=== PATIENT | female | born 1930 | race Caucasian/White ===

== ENCOUNTER → 2017-06-11 | Outpatient (CLI) | payer MEDICARE ==
[~2017-06-11] MED LIST: ACET1TAB86 PO; DIFL100T PO; GABA100C4 PO; HYDR-3516 PO; LATA.005%O EACH EYE; LISI-515 PO; LISI-519 PO; METO25TA3 PO; NICO21DI25 T-DERMAL; PANT40TA3 PO; SENN1TAB PO; VENTAER INH
[2017-06-11 13:11] LABS: AUTOMATED NEUTROPHIL # 6.5 TH/MM3 (1.8-7.7); BASOPHIL # 0.1 TH/MM3 (0-0.2); BASOPHIL % 0.6 % (0.0-2.0); EOSINOPHIL # 0.3 TH/MM3 (0-0.4); EOSINOPHIL % 2.8 % (0.0-4.0); HEMATOCRIT 45.7 % (35.0-46.0); HEMO FLAGS DIFF FINAL; LYMPH % 25.8 % (9.0-44.0); LYMPHOCYTE # 2.7 TH/MM3 (1.0-4.8); MEAN CELL VOLUME 96.3 FL (80.0-100.0); MEAN CORPUSCULAR HEMOGLOBIN 32.2 PG (27.0-34.0); MEAN CORPUSCULAR HGB CONC 33.4 % (32.0-36.0); MONO % 8.5 % (0.0-8.0); NEUT % 62.3 % (16.0-70.0); PLATELET COUNT 301 TH/MM3 (150-450); RED BLOOD COUNT 4.74 MIL/MM3 (4.00-5.30); RED CELL DISTRIBUTION WIDTH 13.6 % (11.6-17.2); WHITE BLOOD COUNT 10.5 TH/MM3 (4.0-11.0)
[2017-06-11 13:18] LABS: ALT (GPT) 13 U/L (10-53); ANION GAP 7 MEQ/L (5-15); AST (GOT) 22 U/L (15-37); BICARBONATE 30.4 MEQ/L (21.0-32.0); BLOOD UREA NITROGEN 8 MG/DL (7-18); CHLORIDE 101 MEQ/L (98-107); GLOMERULAR FILTRATION RATE 103 ML/MIN (>89); GLUCOSE,FASTING 98 MG/DL (74-99); POTASSIUM 3.9 MEQ/L (3.5-5.1); SODIUM (NA) 138 MEQ/L (136-145)
[2017-06-11 13:29] LABS: ALKALINE PHOSPHATASE 91 U/L (45-117); HDL CHOLESTEROL 116.1 MG/DL (40.0-60.0); LDL CHOLESTEROL 34 MG/DL (0-99); TOTAL BILIRUBIN ADULT 0.6 MG/DL (0.2-1.0)
[2017-06-11 15:53] LABS: HEMOGLOBIN A1a 1.1 %; HEMOGLOBIN A1b 1.3 %; HEMOGLOBIN Ao 85.8 %; HEMOGLOBIN F 0.2 %; HEMOGLOBIN P3 3.5 %
== END ==
LOC: PLAB 10:12
PROVIDERS: ATTEND Family Medicine
DX: E78.4 Other hyperlipidemia (principal); R53.83 Other fatigue; R73.01 Impaired fasting glucose; Z13.21 Encounter for screening for nutritional disorder
CPT/HCPCS: 36415; 80053; 80061; 83036; 84443; 85025

== ENCOUNTER 2017-06-17 06:29 | Inpatient (IN) | payer MEDICARE ==
[~2017-06-17] VITALS: Ht 160 cm; Wt 50.0 kg
[2017-06-17] VITALS (8 sets, daily range): BP systolic 123–180; BP diastolic 71–105; PULSE 89–100; RESP 18–20; TEMP 97.6–98.1; O2SAT 93–99
[2017-06-17] MEDS ORDERED: VENTAER INH (06:51)
[2017-06-17] MEDS ORDERED: LISI-515 PO (06:51)
[2017-06-17] MEDS ORDERED: LISI-519 PO (06:51)
[2017-06-17] MEDS ORDERED: DIFL100T PO (06:51)
[2017-06-17] MEDS ORDERED: SODIUM CHLORIDE 0.9% FLUSH 10 ML FLUSH IVF PRN (07:00)
[2017-06-17] MEDS ORDERED: TETANUS/DIPHTHERIA TOXOID ADULT 0.5 ML VIAL IM ONE (07:00)
[2017-06-17 07:13] LABS: AUTOMATED NEUTROPHIL # 21.2 TH/MM3 (1.8-7.7); BASOPHIL % 0.1 % (0.0-2.0); HEMATOCRIT 44.3 % (35.0-46.0); HEMO FLAGS DIFF FINAL; LYMPHOCYTE # 1.5 TH/MM3 (1.0-4.8); MEAN CELL VOLUME 95.6 FL (80.0-100.0); MEAN CORPUSCULAR HEMOGLOBIN 31.7 PG (27.0-34.0); MEAN CORPUSCULAR HGB CONC 33.1 % (32.0-36.0); MONO % 7.8 % (0.0-8.0); NEUT % 86.1 % (16.0-70.0); PLATELET COUNT 291 TH/MM3 (150-450); RED BLOOD COUNT 4.63 MIL/MM3 (4.00-5.30); RED CELL DISTRIBUTION WIDTH 13.3 % (11.6-17.2); WHITE BLOOD COUNT 24.7 TH/MM3 (4.0-11.0)
[2017-06-17 07:30] LABS: BICARBONATE 25.3 MEQ/L (21.0-32.0); POTASSIUM 3.9 MEQ/L (3.5-5.1)
--- NOTE | 2017-06-17 07:40 | RADRPT ---
EXAM DATE/TIME: 06/17/2017 07:10 [facility] COMPARISON: No previous studies available for comparison. INDICATIONS : Trauma; fall. RADIATION DOSE: 56.35 CTDIvol (mGy) MEDICAL HISTORY : Chronic obstructive pulmonary disease. Hypertension. SURGICAL HISTORY : Cholecystectomy. ENCOUNTER: Initial ACUITY: 1 day PAIN SCALE: 4/10 LOCATION: cranial TECHNIQUE: Multiple contiguous axial images were obtained of the head. Using automated exposure control and adj ustment of the mA and/or kV according to patient size, radiation dose was kept as low as reasonably a chievable to obtain optimal diagnostic quality images. DICOM format image data is available electro nically for review and comparison. FINDINGS: CEREBRUM: The ventricles are normal for age. No evidence of midline shift, mass lesion, hemorrhage or acute in farction. No extra-axial fluid collections are seen. Periventricular and deep white matter microvasc ular ischemic laceration with a small basal ganglion infarct on the right POSTERIOR FOSSA: The cerebellum and brainstem are intact. The 4th ventricle is midline. The cerebellopontine angle i s unremarkable. EXTRACRANIAL: The visualized portion of the orbits is intact. SKULL: The calvaria is intact. No evidence of skull fracture. CONCLUSION: Periventricular and deep white matter microvascular demyelinization. Small basal ganglion right sided remote lacunar infarction. Otherwise negative Daryl Avila MD on June 17, 2017 at 7:37 Board Certified Radiologist. This report was verified electronically.
--- NOTE | 2017-06-17 07:47 | EKG ---
Date Performed: 06/17/2017 Time Performed: 06:51:00 PTAGE: 87 years EKG: SINUS TACHYCARDIA WITH SHORT MT INTERVAL POSSIBLE LEFT ATRIAL ENLARGEMENT NONSPECIFIC ST DE PRESSION ABNORMAL ECG PREVIOUS TRACING : 11/01/2003 12.53 No significant change from previous tracing noted. DOCTOR: Gume Phelps Interpretating Date/Time 06/17/2017 07:46:17
--- NOTE | 2017-06-17 07:51 | PD ---
HPI . Fall Chief Complaint: Fall Time Seen by Provider: 06:48 Travel History International Travel<30 days: No Contact w/Intl Traveler<30days: No Traveled to known affect area: No History of Present Illness HPI This patient presents to us via [facility] status post a fall. She actually fell yesterday evening. She reportedly laid in her driveway until 2:00 this morning when a neighbor found her. The neighbor has reportedly been trying to get her to come to the hospital since that time. She is unable to bear weight on her right hip. She states that it really doesn't hurt that badly but she can't stand on it. She denies any loss of consciousness. She has no idea when her last tetanus shot not up in. [facility] Past Medical History COPD: Yes Hypertension: Yes Respiratory: Yes Tetanus Vaccination: Unknown Influenza Vaccination: No ?: Not : 4 Para: 4 Past Surgical History Cholecystectomy: Yes Social History Alcohol Use: Yes (3 times a week ) Tobacco Use: Yes (pack a day ) Substance Use: No Allergies-Medications (Allergen,Severity, Reaction): Uncoded Allergies: FLU SHOTS (Allergy, Unknown, UNKNOWN, 11/08/03) Reported Meds & Prescriptions Reported Meds & Active Scripts Active Reported Diflucan (Fluconazole) 100 Mg Tab 100 Mg PO DAILY Lisinopril 20 Mg Tab 20 Mg PO DAILY Ventolin Hfa 18 GM Inh (Albuterol Sulfate) 90 Mcg/Act Aer 2 Puff INH Q4-6H PRN Review of Systems Except as stated in HPI: all other systems reviewed are Neg Eyes: No: Blurred Vision HENT: No: Headaches, Lightheadedness Cardiovascular: No: Chest Pain or Discomfort Respiratory: No: Shortness of Breath Gastrointestinal: No: Nausea, Vomiting, Diarrhea Genitourinary: No: Urgency, Frequency, Dysuria Musculoskeletal: Positive: Arthralgias Skin: Positive Other (abrasions) Physical Exam Narrative GENERAL: Awake and alert and in no acute distress. SKIN: Warm and dry. She has abrasions to her right forearm and her left leg. HEAD: Atraumatic. Normocephalic. She does have a contusion in the left periorbital region. EYES: Pupils equal and round. Extraocular movements are intact. ENT: No nasal bleeding or discharge. Mucous membranes pink and moist. NECK: Trachea midline. Neck is nontender with full range of motion. CARDIOVASCULAR: Regular rate and rhythm. Heart sounds are normal. RESPIRATORY: No accessory muscle use. Lungs are clear with full air movement throughout. GASTROINTESTINAL: Abdomen soft, non-tender, nondistended. MUSCULOSKELETAL: No obvious deformities. No edema. She does not have any tenderness to palpation in the right groin. There is no shortening or malrotation of the right lower extremity. There is some mild tenderness over the greater trochanter. She is distally neurovascularly intact. NEUROLOGICAL: Awake and alert. No obvious cranial nerve deficits. Motor grossly within normal limits. Normal speech. PSYCHIATRIC: Appropriate mood and affect; insight and judgment normal. Data Data Last Documented VS Vital Signs Date Time Temp Pulse Resp B/P (MAP) Pulse Ox O2 Delivery O2 Flow Rate FiO2 06/17/17 07:02 89 18 180/105 (130) 99 Room Air 06/17/17 06:33 98.1 Orders Orders Basic Metabolic Panel (Bmp) (06/17/17 06:48) Complete Blood Count With Diff (06/17/17 06:48) Iv Access Insert/Monitor (06/17/17 06:48) Sodium Chloride 0.9% Flush (Ns Flush) (06/17/17 07:00) Creatine Kinase (Cpk) (06/17/17 06:48) Ct Brain W/O Iv Contrast(Rout) (06/17/17 06:48) Hip, Uni(Ap&Lat) W Ap Pelvis (06/17/17 06:48) Tetanus/Diphtheria Tox Adult (Tetanus/Di (06/17/17 07:00) Urinalysis - C+S If Indicated (06/17/17 07:21) Electrocardiogram (06/17/17 06:51) CKMB (06/17/17 07:00) CKMB% (06/17/17 07:00) Labs Laboratory Tests Test 06/17/17 07:00 White Blood Count 24.7 TH/MM3 Red Blood Count 4.63 MIL/MM3 Hemoglobin 14.7 GM/DL Hematocrit 44.3 % Mean Corpuscular Volume 95.6 FL Mean Corpuscular Hemoglobin 31.7 PG Mean Corpuscular Hemoglobin Concent 33.1 % Red Cell Distribution Width 13.3 % Platelet Count 291 TH/MM3 Mean Platelet Volume 8.5 FL Neutrophils (%) (Auto) 86.1 % Lymphocytes (%) (Auto) 6.0 % Monocytes (%) (Auto) 7.8 % Eosinophils (%) (Auto) 0.0 % Basophils (%) (Auto) 0.1 % Neutrophils # (Auto) 21.2 TH/MM3 Lymphocytes # (Auto) 1.5 TH/MM3 Monocytes # (Auto) 1.9 TH/MM3 Eosinophils # (Auto) 0.0 TH/MM3 Basophils # (Auto) 0.0 TH/MM3 CBC Comment DIFF FINAL Differential Comment Blood Urea Nitrogen 12 MG/DL Creatinine 0.65 MG/DL Random Glucose 135 MG/DL Calcium Level 9.4 MG/DL Sodium Level 133 MEQ/L Potassium Level 3.9 MEQ/L Chloride Level 98 MEQ/L Carbon Dioxide Level 25.3 MEQ/L Anion Gap 10 MEQ/L Estimat Glomerular Filtration Rate 87 ML/MIN Total Creatine Kinase 660 U/L MDM Medical Decision Making Medical Screen Exam Complete: Yes Emergency Medical Condition: Yes Differential Diagnosis Differential diagnosis of extremity trauma includes but is not limited to fracture, sprain or strain, dislocation, contusion Narrative Course This patient presents several hours following a fall. She is unable to bear weight on her right hip. She has also obviously had some trauma to her head although she denies any loss of consciousness and is currently without any signs or symptoms of a head injury. I have ordered an x-ray of her hip and a CT of her head. Routine labs have been ordered with the addition of a CK to rule out rhabdomyolysis. Her care is being turned over to Dr. Gurrola at 0700. Condition: Stable Lavonne Lopez MD Jun 17, 2017 07:51
--- NOTE | 2017-06-17 07:54 | RADRPT ---
EXAM DATE/TIME: 06/17/2017 07:29 This report includes an Addendum and supersedes previous reports for this exam. [facility] COMPARISON: No previous studies available for comparison. INDICATIONS : Right hip pain, fall. MEDICAL HISTORY : None. SURGICAL HISTORY : None. ENCOUNTER: Initial ACUITY: 1 day PAIN SCORE: 10/10 LOCATION: Right hip FINDINGS: Examination of the right hip was performed with AP Pelvis. The primary and secondary trabecular gemini yaneth of the femoral neck is intact. The hip joint is of normal width without significant sclerosis or bony hypertrophy. The acetabulum is grossly intact. CONCLUSION: 1. No acute fracture or dislocation. Consider MRI examination if patient is unable to bear weight on the affected side. Marquez Rawls MD on June 17, 2017 at 7:51 Board Certified Radiologist. This report was verified electronically. ADDENDUM: There is slight irregularity of the greater trochanter on the oblique view. This may reflect a subtle trochanteric fracture. Clinical correlation with point of maximal tenderness is recommended. Marquez Rawls MD on June 17, 2017 at 8:21 Board Certified Radiologist. This report was verified electronically.
[2017-06-17 07:55] LABS: CKMB 25.5 NG/ML (0.5-3.6)
[2017-06-17 09:24] LABS: BLOOD, URINE NEG (NEG); COMMENT (UR) CULT NOT INDICATED; CULTURE IF INDICATED CULT NOT INDICATED; GLUCOSE,URINE NEG (NEG); KETONE, URINE NEG (NEG); MUCUS URINE FEW /lpf (OCC); NITRITE,URINE NEG (NEG); PH, URINE 6.5 (5.0-8.5); SQUAMOUS EPITHELIAL CELL URINE 4 /hpf (0-5); URINE COLOR YELLOW (YELLW/STRAW)
[2017-06-17] MEDS ORDERED: SODIUM CHLOR 0.9% 1000 ML INJ 1,000 ML IV ONE (09:30)
[2017-06-17] MEDS ORDERED: cefTRIAXone INJ 1,000 MG in SODIUM CHLORIDE 0.9% INJ 100 ML IV ONE (09:30)
--- NOTE | 2017-06-17 09:52 | RADRPT ---
EXAM DATE/TIME: 06/17/2017 09:32 [facility] COMPARISON: No previous studies available for comparison. INDICATIONS : Cough. MEDICAL HISTORY : Chronic obstructive pulmonary disease. Hypertension SURGICAL HISTORY : None. ENCOUNTER: Initial ACUITY: 1 day PAIN SCORE: 0/10 LOCATION: Bilateral chest FINDINGS: A single view of the chest demonstrates the lungs to be symmetrically aerated without evidence of mas s, infiltrate or effusion. Nipple shadows are seen. The cardiomediastinal contours are unremarkable. Osseous structures are intact. CONCLUSION: No acute disease. Florin Benitez MD on June 17, 2017 at 9:49 Board Certified Radiologist. This report was verified electronically.
--- NOTE | 2017-06-17 10:06 | PD ---
Physical Exam Date Seen by Provider: Jun 17, 2017 Time Seen by Provider: 10:03 Narrative 87-year-old female was found down in her driveway by her neighbor at 3 in the morning. As per the patient and she went for a walk last night when she fell and was unable to get up. Her right hip was hurting. Please refer to the previous ER physician's note regarding the details of history and physical. Sign out was to follow-up on the x-ray and labs. [facility] white blood cell count is significantly elevated. Patient's x-ray shows a greater trochanter fracture. She appears to be dehydrated. I went and talked to her and patient is fully awake and answering questions appropriately. 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 Patient has been started on Diflucan yesterday. Her UA and chest x- ray appears to be within acceptable limits. I have given her a dose of Rocephin. This blood culture and lactic acid pending. I just discussed the case with the PA of Dr. Markham from orthopedics. They have recommended a CAT scan of the hip. Patient has been admitted to the hospitalist. I discussed all the findings and the admission with the patient and she is okay with it. Her friend/neighbor is here with her and she pulled me aside and said patient has been a very heavy smoker for 60 years and she is really concerned about her lungs. Data Data Last Documented VS Vital Signs Date Time Temp Pulse Resp B/P (MAP) Pulse Ox O2 Delivery O2 Flow Rate FiO2 06/17/17 10:00 100 18 140/88 (105) 98 Nasal Cannula 2.00 06/17/17 06:33 98.1 Orders Orders Basic Metabolic Panel (Bmp) (06/17/17 06:48) Complete Blood Count With Diff (06/17/17 06:48) Iv Access Insert/Monitor (06/17/17 06:48) Sodium Chloride 0.9% Flush (Ns Flush) (06/17/17 07:00) Creatine Kinase (Cpk) (06/17/17 06:48) Ct Brain W/O Iv Contrast(Rout) (06/17/17 06:48) Hip, Uni(Ap&Lat) W Ap Pelvis (06/17/17 06:48) Tetanus/Diphtheria Tox Adult (Tetanus/Di (06/17/17 07:00) Urinalysis - C+S If Indicated (06/17/17 07:21) Electrocardiogram (06/17/17 06:51) CKMB (06/17/17 07:00) CKMB% (06/17/17 07:00) Sodium Chlor 0.9% 1000 Ml Inj (Ns 1000 M (06/17/17 09:30) Ceftriaxone Inj (Rocephin Inj) (06/17/17 09:30) Blood Culture (06/17/17 09:17) Lactic Acid (06/17/17 09:17) Chest, Single Ap (06/17/17 ) Admit Order (Ed Use Only) (06/17/17 10:01) Labs Laboratory Tests Test 06/17/17 07:00 06/17/17 08:44 06/17/17 09:45 White Blood Count 24.7 TH/MM3 Red Blood Count 4.63 MIL/MM3 Hemoglobin 14.7 GM/DL Hematocrit 44.3 % Mean Corpuscular Volume 95.6 FL Mean Corpuscular Hemoglobin 31.7 PG Mean Corpuscular Hemoglobin Concent 33.1 % Red Cell Distribution Width 13.3 % Platelet Count 291 TH/MM3 Mean Platelet Volume 8.5 FL Neutrophils (%) (Auto) 86.1 % Lymphocytes (%) (Auto) 6.0 % Monocytes (%) (Auto) 7.8 % Eosinophils (%) (Auto) 0.0 % Basophils (%) (Auto) 0.1 % Neutrophils # (Auto) 21.2 TH/MM3 Lymphocytes # (Auto) 1.5 TH/MM3 Monocytes # (Auto) 1.9 TH/MM3 Eosinophils # (Auto) 0.0 TH/MM3 Basophils # (Auto) 0.0 TH/MM3 CBC Comment DIFF FINAL Differential Comment Blood Urea Nitrogen 12 MG/DL Creatinine 0.65 MG/DL Random Glucose 135 MG/DL Calcium Level 9.4 MG/DL Sodium Level 133 MEQ/L Potassium Level 3.9 MEQ/L Chloride Level 98 MEQ/L Carbon Dioxide Level 25.3 MEQ/L Anion Gap 10 MEQ/L Estimat Glomerular Filtration Rate 87 ML/MIN Total Creatine Kinase 660 U/L Creatine Kinase MB 25.5 NG/ML Creatine Kinase MB % 3.9 % Urine Color YELLOW Urine Turbidity CLEAR Urine pH 6.5 Urine Specific [place] 1.012 Urine Protein TRACE mg/dL Urine Glucose (UA) NEG mg/dL Urine Ketones NEG mg/dL Urine Occult Blood NEG Urine Nitrite NEG Urine Bilirubin NEG Urine Urobilinogen LESS THAN 2.0 MG/DL Urine Leukocyte Esterase MOD Urine RBC 3 /hpf Urine WBC 5 /hpf Urine Squamous Epithelial Cells 4 /hpf Urine Mucus FEW /lpf Microscopic Urinalysis Comment CULT NOT INDICATED Lactic Acid Level 1.8 mmol/L MDM Supervised Visit with ROB: No Interpretation(s) Twelve-lead EKG was reviewed by me. Normal sinus rhythm, normal axis, nonspecific ST-T wave changes. Heart rate of 96 bpm. Physician Communication Physician Communication PA of Dr. Markham Diagnosis Primary Impression: Hip fracture, right Qualified Codes: S72.001A - Fracture of unspecified part of neck of right femur, initial encounter for closed fracture Additional Impressions: Fall Qualified Codes: W19.XXXA - Unspecified fall, initial encounter Leukocytosis Qualified Codes: D72.829 - Elevated white blood cell count, unspecified Chronic ulcer of leg Qualified Codes: L97.922 - Non-pressure chronic ulcer of unspecified part of left lower leg with fat layer exposed Admitting Information Admitting Physician Requests: Admit Condition: Stable Chuck Estrada MD Jun 17, 2017 10:06
[2017-06-17] MEDS ORDERED: diphenhydrAMINE HCL 50 MG/ML VIAL ONE (10:13)
[2017-06-17] MEDS ORDERED: RESP: ALBUTEROL 2.5 MG/3 ML NEB (SCH) NEB ONE (10:15)
[2017-06-17] MEDS ORDERED: diphenhydrAMINE HCL 50 MG/ML VIAL IV PUSH ONE (10:15)
[2017-06-17] MEDS ORDERED: SODIUM CHLORIDE 0.9% FLUSH 10 ML FLUSH IV FLUSH PRN (10:30)
[2017-06-17] MEDS ORDERED: LABETALOL HCL 100 MG/20 ML VIAL IV PUSH PRN (10:30)
--- NOTE | 2017-06-17 11:29 | RADRPT ---
EXAM DATE/TIME: 06/17/2017 10:49 [facility] COMPARISON: HIP RIGHT (AP&LAT 2/3VWS) W AP PELVIS, June 17, 2017, 7:29. INDICATIONS : Trauma, fall. Right hip pain. RADIATION DOSE: 19.14 CTDIvol (mGy) MEDICAL HISTORY : Hypertension. Chronic obstructive pulmonary disease. SURGICAL HISTORY : Cholecystectomy. ENCOUNTER: Initial ACUITY: 1 day PAIN SCALE: 10/10 LOCATION: Right hip TECHNIQUE: Volumetric scanning of the hip was performed. Using automated exposure control and adjustment of the mA and/or kV according to patient size, radiation dose was kept as low as reasonably achievable to o btain optimal diagnostic quality images. DICOM format image data is available electronically for rev iew and comparison. FINDINGS: There is an acute intertrochanteric hip fracture on the right. Angulation with apex projecting anteri junaid the femoral head remains in the acetabulum. Acute superior and inferior pubic rami fractures als o seen on the right. These are displaced. An acute fracture to the right sacral ala. No angulation or distraction. The underlying osteopenia. The uterus is enlarged. No large pelvic hematoma. CONCLUSION: 1. Acute intertrochanteric hip fracture on the right with angulation. 2. Acute superior and inferior pelvic rami fractures on the right with angulation. 3. Acute right sacral fracture. 1. Williams Calzada Jr., MD on June 17, 2017 at 11:13 Board Certified Radiologist. This report was verified electronically.
--- NOTE | 2017-06-17 12:09 | EKG ---
Date Performed: 06/17/2017 Time Performed: 08:07:30 PTAGE: 87 years EKG: Sinus rhythm NONSPECIFIC ST & T-WAVE ABNORMALITY BORDERLINE ECG PREVIOUS TRACING : 06/17/2017 06.51 No significant change from previous tracing noted. DOCTOR: Gume Phelps Interpretating Date/Time 06/17/2017 12:09:06
--- NOTE | 2017-06-17 13:12 | MB ---
cc: ROBBIEKIM DATE OF CONSULTATION: 06/17/2017 CHIEF COMPLAINT Right hip pain and fracture status post fall. HISTORY OF PRESENT ILLNESS The patient is a 87-year-old white female who presents to the emergency department after suffering a fall at home. She apparently fell last night sometime and had been laying in her driveway until 2:00 a.m. when her neighbor found her. She was brought to the hospital via ambulance. She states that she is blind. However, she states she lives alone. She reports that she was in the driveway when she lost her balance and fell. She denies any dizziness. Denies any loss of consciousness. Denies any shortness of breath. Denies any current pain at rest. She does report that when she stands she has pain in the right hip and states that she is unable to walk on her right leg secondary to the pain. Denies any numbness, tingling or radiation symptoms and other than acute abrasions, denies any other pain in any other limb. She states that prior to this she was independent and ambulating on her own. PAST MEDICAL HISTORY 1. Positive for COPD 2. Hypertension 3. Respiratory issues PAST SURGICAL HISTORY Positive for cholecystectomy. SOCIAL HISTORY She admits to drinking alcohol and smoking a pack of cigarettes per day. Denies any substance abuse. ALLERGIES TO MEDICATIONS Reports allergy to FLU SHOT. MEDICATION Reported medications: 1. Diflucan. 2. Lisinopril 20 mg p.o. daily. 3. Ventolin inhaler. For a complete list of medications, please see the patient's EMR. REVIEW OF SYSTEMS Negative except for what is mentioned in the HPI. PHYSICAL EXAMINATION VITAL SIGNS: Pulse 95 beats per minute, temperature 98.1, blood pressure 176/84, O2 saturation 96 on room air. GENERAL: Well-developed, well-nourished 87-year-old white female in no acute distress, resting comfortably. HEAD: Normocephalic. Does have evidence of swelling and bruising on the right front part of her skull. Mild abrasions and scratches present. EYES: The pupils are equal, round and reactive to light, extraocular motions intact. EARS: Hearing intact bilaterally. NECK: Supple. No evidence of lymphadenopathy. CRANIAL NERVES: Cranial nerves II-XII grossly intact. LUNGS: No auditory wheezes at bedside and no use of accessory muscles while breathing. HEART: No grade 4 murmur present at bedside. UPPER EXTREMITIES: Full motion of shoulders, elbows, wrists and fingers and minimal discomfort. Full sensation distally to median and ulnar nerve distributions bilaterally. She does have noticeable abrasions on her right olecranon that is bandaged. RIGHT LOWER EXTREMITY: Mild discomfort with flexion of the hip and no real discomfort with internal, external rotation of the hip. She is point tender to palpation of the greater trochanter. She is nontender with palpation of the knee or the ankle or toes. She has full motor of the ankle and toes and no pain. Full sensation distally. Negative Homans and strong dorsiflexion. LEFT LOWER EXTREMITY: Full motion of the hip, knee, ankle and toes and no pain. Full sensation distally with strength 5/5. IMAGING STUDIES X-ray was reviewed from [facility] which shows equivocal fracture of the greater trochanter. CT scan was reviewed from [facility] which shows a nondisplaced greater trochanter fracture of the right hip. Also shows superior and inferior pubic rami fractures. ASSESSMENT 1. Greater trochanter fracture of the right hip. 2. Superior and inferior pubic rami fractures of the right side. PLAN At this point treatment options were discussed with the patient. Assuming that she would do very well with nonsurgical treatment. At this point I would recommend that she remains 2% weightbearing on the right leg while using a walker. I advised the patient that as long as the fractures maintain their position they should heal well on their own and she should be able to avoid surgery. She will avoid any active abduction. She will be admitted to the [facility] and will begin physical therapy. Due to her inability to ambulate and being blind, she will likely benefit from inpatient rehab facility after discharge from the hospital. We will follow along in the hospital setting. Otherwise, she will follow up on outpatient setting with Dr. Mcclure or his PA in 2 weeks. The patient understood and all questions were answered. The above patient was reviewed and discussed with Dr. Mcclure and he does agree. Dictated by: SUZANNE Carmona I also saw and examined this patient. History, past medical history, social history, review of systems, physical exam, radiographs, assessment, and plan were also reviewed. Plan on nonoperative treatment. A mid-level provider in my office (nurse practitioner or physician administrative assistant) may see this patient on follow-up visits and continue to implement the objectives of this plan including : Starting or adjusting medications, injections, cast application, orthotics, brace application, physical therapy, radiological studies (including x-ray, MRI , CT, ultrasound, bone scan), vascular studies, neurologic studies, specialist consultation, and proceeding with surgical management, as appropriate. MD KIRAN Cameron/KRISS /12:23 PM /1:09 PM JC
[2017-06-17] MEDS: SODIUM CHLOR 0.9% 1000 ML INJ 1,000 ML IV SCH (13:16)
[2017-06-17] MEDS ORDERED: ALBUTEROL SULFATE 90 MCG/ACT HFA 8 GM INHALER INH PRN (15:45)
[2017-06-17] MEDS ORDERED: ENALAPRILAT 2.5 MG/2 ML VIAL IV PUSH PRN (16:00)
[2017-06-17] MEDS ORDERED: ALBUTEROL SULFATE 90 MCG/ACT HFA 18 GM INHALER INH PRN (16:00)
--- NOTE | 2017-06-17 16:03 | HHI.HP ---
[facility] Service [facility] Primary Care Physician Shandra Dc MD Admission Diagnosis fall, hip fracture, leukocytosis Diagnoses: (1) Rhabdomyolysis (2) Hip fracture, right (3) Chronic ulcer of leg (4) Leukocytosis (5) Fall Chief Complaint: Right hip pain Travel History International Travel<30 Days: No Contact w/Intl Traveler <30 Da: No Traveled to Known Affected Are: No History of Present Illness 87-year-old female with a history of hypertension, COPD was brought to the ED for evaluation of right hip pain. Patient states she fell while bringing the dog inside after she has gone out to walk him. She landed on her right side in the garage and was unable to move for up to 4 hours until seen by her neighbor. She denies any head trauma. She did complain of severe right hip pain rated 6/10 in intensity. She has no chest pain or shortness of breath. She denies any GI bleed Review of Systems Except as stated in HPI: all other systems reviewed are Neg Past Family Social History Past Medical History Hypertension COPD Tobacco abuse Past Surgical History Cataract surgery Cholecystectomy Reported Medications Diflucan (Fluconazole) 100 Mg Tab 100 Mg PO DAILY Lisinopril 20 Mg Tab 20 Mg PO DAILY Ventolin Hfa 18 GM Inh (Albuterol Sulfate) 90 Mcg/Act Aer 2 Puff INH Q4-6H PRN Allergies: Coded Allergies: ceftriaxone (Verified Allergy, Severe, Wheezing, 06/17/17) Uncoded Allergies: FLU SHOTS (Allergy, Unknown, UNKNOWN, 11/08/03) Family History Positive for hypertension Social History Alcohol Use: Yes (3 times a week ) Tobacco Use: Yes (pack a day ) Substance Use: No Physical Exam Vital Signs Vital Signs Date Time Temp Pulse Resp B/P (MAP) Pulse Ox O2 Delivery O2 Flow Rate FiO2 06/17/17 14:37 06/17/17 12:00 94 18 160/78 (105) 99 Nasal Cannula 2.00 06/17/17 10:26 93 Nasal Cannula 3.00 06/17/17 10:00 100 18 140/88 (105) 98 Nasal Cannula 2.00 06/17/17 08:46 95 18 176/84 (114) 96 Room Air 06/17/17 07:02 89 18 180/105 (130) 99 Room Air 06/17/17 06:33 98.1 89 18 157/80 (105) 98 Physical Exam GENERAL: This is a well-nourished, well-developed patient, in no apparent distress. SKIN: No rashes, ecchymoses or lesions. Cool and dry. HEAD: Atraumatic. Normocephalic. No temporal or scalp tenderness. EYES: Pupils equal round and reactive. Extraocular motions intact. No scleral icterus. No injection or drainage. ENT: Nose without bleeding, purulent drainage or septal hematoma. Throat without erythema, tonsillar hypertrophy or exudate. Uvula midline. Airway patent. NECK: Trachea midline. No JVD or lymphadenopathy. Supple, nontender, no meningeal signs. CARDIOVASCULAR: Regular rate and rhythm without murmurs, gallops, or rubs. RESPIRATORY: Clear to auscultation. Breath sounds decrease bilaterally. No wheezes, rales, or rhonchi. GASTROINTESTINAL: Abdomen soft, non-tender, nondistended. No hepato-splenomegaly , or palpable masses. No guarding. MUSCULOSKELETAL: Extremities without clubbing, cyanosis, or edema.RLE TTP with Limited ROM. Negative Homans sign bilaterally. NEUROLOGICAL: Awake and alert. Cranial nerves II through XII intact. Motor and sensory grossly within normal limits. Five out of 5 muscle strength in all muscle groups. Normal speech. Laboratory Laboratory Tests Test 06/17/17 07:00 06/17/17 08:44 06/17/17 09:45 White Blood Count 24.7 Red Blood Count 4.63 Hemoglobin 14.7 Hematocrit 44.3 Mean Corpuscular Volume 95.6 Mean Corpuscular Hemoglobin 31.7 Mean Corpuscular Hemoglobin Concent 33.1 Red Cell Distribution Width 13.3 Platelet Count 291 Mean Platelet Volume 8.5 Neutrophils (%) (Auto) 86.1 Lymphocytes (%) (Auto) 6.0 Monocytes (%) (Auto) 7.8 Eosinophils (%) (Auto) 0.0 Basophils (%) (Auto) 0.1 Neutrophils # (Auto) 21.2 Lymphocytes # (Auto) 1.5 Monocytes # (Auto) 1.9 Eosinophils # (Auto) 0.0 Basophils # (Auto) 0.0 CBC Comment DIFF FINAL Differential Comment Blood Urea Nitrogen 12 Creatinine 0.65 Random Glucose 135 Calcium Level 9.4 Sodium Level 133 Potassium Level 3.9 Chloride Level 98 Carbon Dioxide Level 25.3 Anion Gap 10 Estimat Glomerular Filtration Rate 87 Total Creatine Kinase 660 Creatine Kinase MB 25.5 Creatine Kinase MB % 3.9 Urine Color YELLOW Urine Turbidity CLEAR Urine pH 6.5 Urine Specific [place] 1.012 Urine Protein TRACE Urine Glucose (UA) NEG Urine Ketones NEG Urine Occult Blood NEG Urine Nitrite NEG Urine Bilirubin NEG Urine Urobilinogen LESS THAN 2.0 Urine Leukocyte Esterase MOD Urine RBC 3 Urine WBC 5 Urine Squamous Epithelial Cells 4 Urine Mucus FEW Microscopic Urinalysis Comment CULT NOT INDICATED Lactic Acid Level 1.8 Date/Time Source Procedure Growth Status 06/17/17 09:50 Blood Peripheral Aerobic Blood Culture Pending Received 06/17/17 09:50 Blood Peripheral Anaerobic Blood Culture Pending Received Result Diagram: 06/17/17 0700 06/17/17 0700 Septic Shock Reassessment Heart: Regular rate and rhythm Lungs: Clear Skin: Warm Peripheral Pulses: Bounding Right Radial Bounding Left Radial Bounding Right Popliteal Bounding Left Popliteal Bounding Right Dorsalis Pedis Bounding Left Dorsalis Pedis Bounding Right Posterior Tibial Bounding Left Posterior Tibial Capillary Refill: >2 seconds Caprini VTE Risk Assessment Caprini VTE Risk Assessment: Mod/High Risk (score >= 2) Caprini Risk Assessment Model Point Value = 1 Point Value = 2 Point Value = 3 Point Value = 5 Age 41-60 Minor surgery BMI > 25 kg/m2 Swollen legs Varicose veins or History of unexplained or recurrent spontaneous Oral contraceptives or hormone replacement Sepsis (< 1 month) Serious lung disease, including pneumonia (< 1 month) Abnormal pulmonary function Acute myocardial infarction Congestive heart failure (< 1 month) History of inflammatory bowel disease Medical patient at bed rest Age 61-74 Arthroscopic surgery Major open surgery (> 45 min) Laparoscopic surgery (> 45 min) Malignancy Confined to bed (> 72 hours) Immobilizing plaster cast Central venous access Age >= 75 History of VTE Family history of VTE Factor V Leiden Prothrombin [id number] Lupus anticoagulant Anticardiolipin antibodies Elevated serum homocysteine Heparin-induced thrombocytopenia Other congenital or acquired thrombophilia Stroke (< 1 month) Elective arthroplasty Hip, pelvis, or leg fracture Acute spinal cord injury (< 1 month) Prophylaxis Regimen Total Risk Factor Score Risk Level Prophylaxis Regimen 0-1 Low Early ambulation 2 Moderate Order ONE of the following: *Sequential Compression Device (SCD) *Heparin 5000 units SQ BID 3-4 Higher Order ONE of the following medications: *Heparin 5000 units SQ TID *Enoxaparin/Lovenox 40 mg SQ daily (WT < 150 kg, CrCl > 30 mL/min) *Enoxaparin/Lovenox 30 mg SQ daily (WT < 150 kg, CrCl > 10-29 mL/min) *Enoxaparin/Lovenox 30 mg SQ BID (WT < 150 kg, CrCl > 30 mL/min) AND/OR *Sequential Compression Device (SCD) 5 or more Highest Order ONE of the following medications: *Heparin 5000 units SQ TID (Preferred with Epidurals) *Enoxaparin/Lovenox 40 mg SQ daily (WT < 150 kg, CrCl > 30 mL/min) *Enoxaparin/Lovenox 30 mg SQ daily (WT < 150 kg, CrCl > 10-29 mL/min) *Enoxaparin/Lovenox 30 mg SQ BID (WT < 150 kg, CrCl > 30 mL/min) AND *Sequential Compression Device (SCD) Assessment and Plan Problem List: (1) Hip fracture, right ICD Code: S72.001A - Fracture of unspecified part of neck of right femur, initial encounter for closed fracture Status: Acute (2) Rhabdomyolysis ICD Code: M62.82 - Rhabdomyolysis (3) Chronic ulcer of leg ICD Code: L97.909 - Non-pressure chronic ulcer of unspecified part of unspecified lower leg with unspecified severity Status: Acute (4) Fall ICD Code: W19.XXXA - Unspecified fall, initial encounter Status: Acute (5) Leukocytosis ICD Code: D72.829 - Elevated white blood cell count, unspecified Status: Acute Assessment and Plan 87-year-old female with Greater trochanter fracture of the right hip. Superior and inferior pubic rami fractures of the right side. Pelvic x-ray noted and reviewed by me with finding of subtal trochanter fracture Lower extremity CT scan noted and review with finding of greater trochanter fracture as well as superior and inferior pubic Rami fractures Orthopedic Surgery consulted for evaluation for possible surgery however recommended conservative management Physical therapy consult Parenteral pain management accordingly Rhabdomyolysis IV fluid hydration and monitor CK Chronic left foot ulcer Status post Rocephin IV in the ED, resume Diflucan Wound care nurse consult Leukocytosis UA negative Chest x-ray without any cardio pulmonary disease Likely secondary to chronic left foot ulcer Hypertension Resume lisinopril COPD Current exacerbation, DuoNeb when necessary Tobacco abuse Counseled to quit Declined nicotine patch DVT prophylaxis: Bilateral SCDs Code Status Full code Discussed Condition With Patient, ED physician Physician Certification 2 Midnight Certification Type: Admission for Inpatient Services Order for Inpatient Services The services are ordered in accordance with Medicare regulations or non- Medicare payer requirements, as applicable. In the case of services not specified as inpatient-only, they are appropriately provided as inpatient services in accordance with the 2-midnight benchmark. Estimated LOS (days): 2 days is the estimated time the patient will need to remain in the hospital, assuming treatment plan goals are met and no additional complications. Post-Hospital Plan: Not yet determined Problem Qualifiers (1) Hip fracture, right: Qualified Codes: S72.001A - Fracture of unspecified part of neck of right femur , initial encounter for closed fracture (2) Chronic ulcer of leg: Qualified Codes: L97.922 - Non-pressure chronic ulcer of unspecified part of left lower leg with fat layer exposed (3) Leukocytosis: Qualified Codes: D72.829 - Elevated white blood cell count, unspecified (4) Fall: Qualified Codes: W19.XXXA - Unspecified fall, initial encounter Florin Kerr MD Jun 17, 2017 16:03
--- NOTE | 2017-06-17 17:44 | PD.WCN.NOT ---
Wound Consult Description: Consult for Wound Management of LLE per Dr Kerr Communicated with: Dr Kerr Recommendation: Gently cleanse left lateral ankle with NS and gauze. Apply Optifoam AG (non adhesive) to left lateral ankle every 3-5 days and PRN for saturation or dislodgement. Secure with rolled gauze and tape (do not apply tape to skin). 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 Dressing of rolled gauze and bordered gauze removed to reveal a wound measuring 4.3cm x 1.8cm x 0.3cm of ~50% yellow adherent tissue and ~30% pink tissue and ~20% red non granulating tissue noted to moist wound bed with no active drainage and mild odor. Periwound is slightly macerated from ointment previously placed prior to assessment. Wound was cleansed with NS and gauze prior to applying Optifoam AG non adhesive dressing secured with rolled gauze that may remain in place for up to 5 days. Suzanna Nielson [facility] Jun 17, 2017 17:44
[2017-06-17] MEDS: SODIUM CHLORIDE 0.9% FLUSH 10 ML FLUSH IV FLUSH SCH (21:00)
[2017-06-17] MEDS: ACETAMINOPHEN 325 MG TAB PO PRN (22:54)
[2017-06-18 00:15] VITALS: BP 120/70; PULSE 88; RESP 19; TEMP 96.9; O2SAT 95
[2017-06-18] MEDS: SODIUM CHLOR 0.9% 1000 ML INJ 1,000 ML IV SCH ×2 (00:36→14:54)
[2017-06-18] MEDS: ACETAMINOPHEN 325 MG TAB PO PRN ×2 (06:05→12:59)
--- NOTE | 2017-06-18 06:36 | PD.ORT.PN ---
Subjective Subjective Remarks Patient seen and examined. Nisreen had a fall resulting in right greater trochanter fracture and right pubic rami fracture. Pain is worse with movement. Objective Vitals Vital Signs Date Time Temp Pulse Resp B/P (MAP) Pulse Ox O2 Delivery O2 Flow Rate FiO2 06/18/17 04:00 Room Air 06/18/17 00:15 96.9 88 19 120/70 (87) 95 06/18/17 00:00 Nasal Cannula 2.00 06/17/17 20:30 97.6 98 18 123/71 (88) 94 06/17/17 20:00 Nasal Cannula 2.00 06/17/17 16:00 98.1 94 20 151/74 (99) 99 06/17/17 14:37 06/17/17 12:00 94 18 160/78 (105) 99 Nasal Cannula 2.00 06/17/17 10:26 93 Nasal Cannula 3.00 06/17/17 10:00 100 18 140/88 (105) 98 Nasal Cannula 2.00 06/17/17 08:46 95 18 176/84 (114) 96 Room Air 06/17/17 07:02 89 18 180/105 (130) 99 Room Air I/O 06/17/17 06/17/17 06/17/17 06/18/17 06/18/17 06/18/17 07:00 15:00 23:00 07:00 15:00 23:00 Intake Total 1220 ml 120 ml 1353 ml Output Total 300 ml Balance 920 ml 120 ml 1353 ml Intake Oral 120 ml 120 ml IV Total 1100 ml 1353 ml Output Urine Total 300 ml # Voids 1 1 # Bowel Movements 1 Result Diagram: 06/17/17 0700 06/17/17 0700 Objective Remarks Patient is awake and alert. Examination right hip reveals tenderness to palpation directly over the greater trochanter. She has minimal tenderness over the pubic rami. She has no pain with knee or ankle motion. Sensation is intact to right foot. Assessment & Plan Assessment and Plan Radiographs were reviewed. Patient has mildly displaced greater trochanter fracture and pubic rami fractures. Plan on nonoperative treatment. 50% weightbearing right leg Physical therapy consult Case management for SNF placement I also saw and examined this patient. History, past medical history, social history, review of systems, physical exam, radiographs, assessment, and plan were also reviewed. Plan on nonoperative treatment. A mid-level provider in my office (nurse practitioner or physician respiratory care assistant) may see this patient on follow-up visits and continue to implement the objectives of this plan including : Starting or adjusting medications, injections, cast application, orthotics, brace application, physical therapy, radiological studies (including x-ray, MRI , CT, ultrasound, bone scan), vascular studies, neurologic studies, specialist consultation, and proceeding with surgical management, as appropriate. Rene Mcclure MD Jun 18, 2017 06:36
[2017-06-18 07:36] VITALS: BP 123/65; PULSE 77; RESP 18; TEMP 96.5; O2SAT 94
[2017-06-18 07:57] LABS: AUTOMATED NEUTROPHIL # 9.3 TH/MM3 (1.8-7.7); BASOPHIL # 0.1 TH/MM3 (0-0.2); BASOPHIL % 0.4 % (0.0-2.0); EOSINOPHIL # 0.1 TH/MM3 (0-0.4); EOSINOPHIL % 1.1 % (0.0-4.0); HEMATOCRIT 36.3 % (35.0-46.0); HEMO FLAGS DIFF FINAL; LYMPH % 13.1 % (9.0-44.0); LYMPHOCYTE # 1.6 TH/MM3 (1.0-4.8); MEAN CORPUSCULAR HEMOGLOBIN 32.2 PG (27.0-34.0); MEAN CORPUSCULAR HGB CONC 33.2 % (32.0-36.0); MONO % 9.3 % (0.0-8.0); NEUT % 76.1 % (16.0-70.0); PLATELET COUNT 185 TH/MM3 (150-450); RED BLOOD COUNT 3.75 MIL/MM3 (4.00-5.30); RED CELL DISTRIBUTION WIDTH 13.4 % (11.6-17.2); WHITE BLOOD COUNT 12.2 TH/MM3 (4.0-11.0)
[2017-06-18 08:18] LABS: ALT (GPT) 13 U/L (10-53); ANION GAP 7 MEQ/L (5-15); AST (GOT) 36 U/L (15-37); BLOOD UREA NITROGEN 7 MG/DL (7-18); CHLORIDE 105 MEQ/L (98-107); GLOMERULAR FILTRATION RATE 177 ML/MIN (>89); POTASSIUM 3.3 MEQ/L (3.5-5.1); SODIUM (NA) 138 MEQ/L (136-145)
[2017-06-18 08:19] LABS: ALKALINE PHOSPHATASE 60 U/L (45-117); CREATINE KINASE 292 U/L (26-192); TOTAL BILIRUBIN ADULT 0.7 MG/DL (0.2-1.0)
[2017-06-18 08:37] LABS: CKMB 8.5 NG/ML (0.5-3.6)
[2017-06-18] MEDS: SODIUM CHLORIDE 0.9% FLUSH 10 ML FLUSH IV FLUSH SCH (09:00)
[2017-06-18] MEDS ORDERED: LISINOPRIL 20 MG TAB PO SCH (09:00)
[2017-06-18] MEDS ORDERED: FLUCONAZOLE 100 MG TAB PO SCH (09:00)
[2017-06-18 11:51] VITALS: BP 121/56; PULSE 86; RESP 18; TEMP 96.4; O2SAT 93
[2017-06-18] MEDS ORDERED: POTASSIUM CHLORIDE 20 MEQ CONTROLLED RELEASE TAB PO ONE (13:15)
--- NOTE | 2017-06-18 14:12 | HHI.PR ---
Subjective Remarks Follow-up Greater trochanter fracture of the right hip/Superior and inferior pubic rami fractures of the right side 06/18/17-patient seen and examined, reports improvement of right hip as well as pelvic pain. Currently afebrile. Case discussed this a.m. with patient's PCP Objective Vitals Vital Signs Date Time Temp Pulse Resp B/P (MAP) Pulse Ox O2 Delivery O2 Flow Rate FiO2 06/18/17 11:51 96.4 86 18 121/56 (77) 93 06/18/17 09:38 Room Air 06/18/17 07:36 96.5 77 18 123/65 (84) 94 06/18/17 04:00 Room Air 06/18/17 00:15 96.9 88 19 120/70 (87) 95 06/18/17 00:00 Nasal Cannula 2.00 06/17/17 20:30 97.6 98 18 123/71 (88) 94 06/17/17 20:00 Nasal Cannula 2.00 06/17/17 16:00 98.1 94 20 151/74 (99) 99 06/17/17 14:37 I/O 06/17/17 06/17/17 06/17/17 06/18/17 06/18/17 06/18/17 07:00 15:00 23:00 07:00 15:00 23:00 Intake Total 1220 ml 120 ml 1593 ml Output Total 300 ml Balance 920 ml 120 ml 1593 ml Intake Oral 120 ml 120 ml 240 ml IV Total 1100 ml 1353 ml Output Urine Total 300 ml # Voids 1 1 2 # Bowel Movements 1 0 Result Diagram: 06/18/1772006/18/17720 Imaging Last Impressions Hip and Pelvis X-Ray 06/17/17647 Signed Impressions: Service Date/Time: Saturday, June 17, 2017 07:29 - CONCLUSION: 1. No acute fracture or dislocation. Consider MRI examination if patient is unable to bear weight on the affected side. Marquez Rawls MD ADDENDUM: There is slight irregularity of the greater trochanter on the oblique view. This may reflect a subtle trochanteric fracture. Clinical correlation with point of maximal tenderness is recommended. Marquez Rawls MD Head CT 06/17/17647 Signed Impressions: Service Date/Time: Saturday, June 17, 2017 07:10 - CONCLUSION: Periventricular and deep white matter microvascular demyelinization. Small basal ganglion right sided remote lacunar infarction. Otherwise negative Daryl Avila MD Lower Extremity CT 06/17/17 0000 Signed Impressions: Service Date/Time: Saturday, June 17, 2017 10:49 - CONCLUSION: 1. Acute intertrochanteric hip fracture on the right with angulation. 2. Acute superior and inferior pelvic rami fractures on the right with angulation. 3. Acute right sacral fracture. 1. Williams Calzada Jr., MD Chest X-Ray 06/17/17 0000 Signed Impressions: Service Date/Time: Saturday, June 17, 2017 09:32 - CONCLUSION: No acute disease. Florin Benitez MD Objective Remarks GENERAL: NAD and sitting in a chair SKIN: Warm and dry. HEAD: Normocephalic. EYES: No scleral icterus. No injection or drainage. NECK: Supple, trachea midline. No JVD or lymphadenopathy. CARDIOVASCULAR: Regular rate and rhythm without murmurs, gallops, or rubs. RESPIRATORY: Breath sounds equal bilaterally. No accessory muscle use. GASTROINTESTINAL: Abdomen soft, non-tender, nondistended. MUSCULOSKELETAL: No cyanosis, or edema. Dressing over left lower extremity BACK: Nontender without obvious deformity. No CVA tenderness. A/P Problem List: (1) Hip fracture, right ICD Code: S72.001A - Fracture of unspecified part of neck of right femur, initial encounter for closed fracture Status: Acute (2) Rhabdomyolysis ICD Code: M62.82 - Rhabdomyolysis (3) Chronic ulcer of leg ICD Code: L97.909 - Non-pressure chronic ulcer of unspecified part of unspecified lower leg with unspecified severity Status: Acute (4) Fall ICD Code: W19.XXXA - Unspecified fall, initial encounter Status: Acute (5) Leukocytosis ICD Code: D72.829 - Elevated white blood cell count, unspecified Status: Acute Assessment and Plan 87-year-old female with Greater trochanter fracture of the right hip. Superior and inferior pubic rami fractures of the right side. Pelvic x-ray noted and reviewed by me with finding of subtal trochanter fracture Lower extremity CT scan noted and review with finding of greater trochanter fracture as well as superior and inferior pubic Rami fractures Orthopedic Surgery consulted for evaluation for possible surgery however recommended conservative management Physical therapy treatment and Viky Parenteral pain management accordingly Rhabdomyolysis-resolved IV fluid hydration and monitor CK Chronic left foot ulcer Status post Rocephin IV in the ED, continued Diflucan Wound care nurse appreciated Check CTA runoff Hypokalemia Give potassium 60 mEq 1 now Leukocytosis-improving UA negative Chest x-ray without any cardio pulmonary disease Likely secondary to chronic left foot ulcer Hypertension Continue lisinopril COPD Current exacerbation, DuoNeb when necessary Tobacco abuse Counseled to quit Declined nicotine patch DVT prophylaxis: Bilateral SCDs Discharge Planning If CTA runoff negative, will discharge patient to [facility] Problem Qualifiers (1) Hip fracture, right: Qualified Codes: S72.001A - Fracture of unspecified part of neck of right femur , initial encounter for closed fracture (2) Chronic ulcer of leg: Qualified Codes: L97.922 - Non-pressure chronic ulcer of unspecified part of left lower leg with fat layer exposed (3) Fall: Qualified Codes: W19.XXXA - Unspecified fall, initial encounter (4) Leukocytosis: Qualified Codes: D72.829 - Elevated white blood cell count, unspecified Florin Kerr MD Jun 18, 2017 14:12
[2017-06-18] MEDS ORDERED: IOHEXOL 350 MG/ML 10 ML VIAL (for RAD DIAG) IVCONTRAST ONE (16:04)
[2017-06-18 16:15] VITALS: BP 131/66; PULSE 81; RESP 18; TEMP 96.5; O2SAT 93
--- NOTE | 2017-06-18 17:16 | RADRPT ---
EXAM DATE/TIME: 06/18/2017 15:45 [facility] COMPARISON: No previous studies available for comparison. INDICATIONS : Patient with non-healing ulcer left lower leg, evaluate for occlusion. IV CONTRAST: 99 cc Omnipaque 350 (iohexol) IV RADIATION DOSE: 9.92 CTDIvol (mGy) MEDICAL HISTORY : Hypertension. Chronic obstructive pulmonary disease. SURGICAL HISTORY : Cholecystectomy. ENCOUNTER: Initial ACUITY: >1 yr PAIN SCALE: 5/10 LOCATION: Left lower leg TECHNIQUE: Volumetric scanning was performed using a multi-row detector CT scanner. The data was post processed with a variety of visualization algorithms including full volume maximum intensity projection, multi -planar sliding thin slab reformation, curved planar reformation, and surface rendering techniques. Using automated exposure control and adjustment of the mA and/or kV according to patient size, radiat ion dose was kept as low as reasonably achievable to obtain optimal diagnostic quality images. DICO M format image data is available electronically for review and comparison. FINDINGS: Aorta/inflow: Scattered calcified plaque throughout the infrarenal aorta and inflow vessels. No hemodynamically sig nificant stenosis. The celiac, SMA, THANH, and renal arteries are patent bilaterally. A small accessory renal arteries seen supplying the lower pole of the left kidney. Right lower extremity: Scattered atherosclerotic plaque throughout the outflow vessels. The most significant stenosis is 30- 40% involving the [id number] popliteal artery. 3 vessel runoff to the foot. There is scattered ca lcified plaque within the posterior tibial artery. It's is seen distally. No hemodynamically signific ant stenosis appreciated. Dominant runoff via the anterior tibial artery. Left lower extremity: There is scattered mild atherosclerotic plaque throughout the outflow vessels. The most significant s tenosis is 40% involving the [id number] popliteal artery. 3 vessel wall to the left foot. The ant erior tibial artery is dominant. Scattered calcified plaque involving the distal posterior tibial art rosa without hemodynamically significant stenosis. Other structures: Soft tissue swelling involving the left ankle. A tiny right pleural effusion with associated atelecta sis. The gallbladder is surgically absent. Diffuse fatty infiltration of the liver. The uterus is enl arged and somewhat lobulated. Suggest uterine fibroids. Superior ventricular rami fractures are seen on the right. They appear acute to subacute in nature. A right sacral alar fracture noted. A right in tertrochanteric hip fracture. CONCLUSION: 1. Patent inflow, outflow, and runoff bilaterally. 2. Acute to subacute fractures involving the right pelvis and right hip as detailed above. 3. Hepatic steatosis. 4. Lobulated uterus suggesting uterine fibroids. Williams Calzada Jr., MD on June 18, 2017 at 17:02 Board Certified Radiologist. This report was verified electronically.
--- NOTE | 2017-06-18 18:20 | HHI.DS ---
Discharge Summary Admission Date Jun 17, 2017 at 10:03 Discharge Date: Jun 18, 2017 Admitting Diagnosis fall, hip fracture, leukocytosis (1) Hip fracture, right ICD Code: S72.001A - Fracture of unspecified part of neck of right femur, initial encounter for closed fracture Status: Acute (2) Rhabdomyolysis ICD Code: M62.82 - Rhabdomyolysis Status: Acute (3) Chronic ulcer of leg ICD Code: L97.909 - Non-pressure chronic ulcer of unspecified part of unspecified lower leg with unspecified severity Status: Acute (4) Fall ICD Code: W19.XXXA - Unspecified fall, initial encounter Status: Acute (5) Leukocytosis ICD Code: D72.829 - Elevated white blood cell count, unspecified Status: Acute Procedures none Brief History - From Admission 87-year-old female with a history of hypertension, COPD was brought to the ED for evaluation of right hip pain. Patient states she fell while bringing the dog inside after she has gone out to walk him. She landed on her right side in the garage and was unable to move for up to 4 hours until seen by her neighbor. She denies any head trauma. She did complain of severe right hip pain rated 6/10 in intensity. She has no chest pain or shortness of breath. She denies any GI bleed CBC/BMP: 06/18/17 0721 06/18/17 0721 Significant Findings Laboratory Tests Test 06/17/17 07:00 06/17/17 08:44 06/17/17 09:45 06/18/17 07:21 White Blood Count 24.7 TH/MM3 (4.0-11.0) 12.2 TH/MM3 (4.0-11.0) Neutrophils (%) (Auto) 86.1 % (16.0-70.0) 76.1 % (16.0-70.0) Lymphocytes (%) (Auto) 6.0 % (9.0-44.0) Neutrophils # (Auto) 21.2 TH/MM3 (1.8-7.7) 9.3 TH/MM3 (1.8-7.7) Monocytes # (Auto) 1.9 TH/MM3 (0-0.9) 1.1 TH/MM3 (0-0.9) Random Glucose 135 MG/DL (74-106) 130 MG/DL (74-106) Sodium Level 133 MEQ/L (136-145) Estimat Glomerular Filtration Rate 87 ML/MIN (>89) Total Creatine Kinase 660 U/L (26-192) 292 U/L (26-192) Creatine Kinase MB 25.5 NG/ML (0.5-3.6) 8.5 NG/ML (0.5-3.6) Urine Leukocyte Esterase MOD (NEG) Urine Mucus FEW /lpf (OCC) Red Blood Count 3.75 MIL/MM3 (4.00-5.30) Monocytes (%) (Auto) 9.3 % (0.0-8.0) Creatinine 0.35 MG/DL (0.50-1.00) Total Protein 5.0 GM/DL (6.4-8.2) Albumin 2.6 GM/DL (3.4-5.0) Calcium Level 8.1 MG/DL (8.5-10.1) Potassium Level 3.3 MEQ/L (3.5-5.1) Imaging Last Impressions Hip and Pelvis X-Ray 06/17/17647 Signed Impressions: Service Date/Time: Saturday, June 17, 2017 07:29 - CONCLUSION: 1. No acute fracture or dislocation. Consider MRI examination if patient is unable to bear weight on the affected side. Marquez Rawls MD ADDENDUM: There is slight irregularity of the greater trochanter on the oblique view. This may reflect a subtle trochanteric fracture. Clinical correlation with point of maximal tenderness is recommended. Marquez Rawls MD Head CT 06/17/1748 Signed Impressions: Service Date/Time: Saturday, June 17, 2017 07:10 - CONCLUSION: Periventricular and deep white matter microvascular demyelinization. Small basal ganglion right sided remote lacunar infarction. Otherwise negative Daryl Avila MD Lower Extremity CT 06/17/17 0000 Signed Impressions: Service Date/Time: Saturday, June 17, 2017 10:49 - CONCLUSION: 1. Acute intertrochanteric hip fracture on the right with angulation. 2. Acute superior and inferior pelvic rami fractures on the right with angulation. 3. Acute right sacral fracture. 1. Williams Calzada Jr., MD Chest X-Ray 06/17/17 0000 Signed Impressions: Service Date/Time: Saturday, June 17, 2017 09:32 - CONCLUSION: No acute disease. Florin Benitez MD PE at Discharge GENERAL: NAD and sitting in a chair SKIN: Warm and dry. HEAD: Normocephalic. EYES: No scleral icterus. No injection or drainage. NECK: Supple, trachea midline. No JVD or lymphadenopathy. CARDIOVASCULAR: Regular rate and rhythm without murmurs, gallops, or rubs. RESPIRATORY: Breath sounds equal bilaterally. No accessory muscle use. GASTROINTESTINAL: Abdomen soft, non-tender, nondistended. MUSCULOSKELETAL: No cyanosis, or edema. Dressing over left lower extremity BACK: Nontender without obvious deformity. No CVA tenderness. Hospital Course Patient was admitted secondary to Greater trochanter fracture of the right hip as well as Superior and inferior pubic rami fractures of the right side for which orthopedic surgery was consulted, however it was recommended conservative nonoperative management. Physical therapy was consulted and pain management was provided accordingly. She was provided aggressive IV fluid hydration secondary to rhabdomyolysis which improved. Wound care was consulted secondary to chronic left fourth ulcer and a CTA runoff was obtained. Patient was continued on her treatment with Diflucan with monitoring of blood culture. Treatment for other chronic medical conditions were resumed. DVT and GI prophylaxis were provided. Prior to discharge, patient's condition improved and vital remained stable. Pt Condition on Discharge: Stable Discharge Disposition: Rehab Inpatient Discharge Time: > 30 minutes Discharge Instructions DIET: Follow Instructions for: Heart Healthy Diet Activities you can perform: Partial Weight Bearing Follow up Referrals: Orthopedics - 2 Weeks PCP Follow-up - 2-3 Days Continued Medications: Albuterol 18 GM Inh (Ventolin Hfa 18 GM Inh) 90 Mcg/Act Aer 2 PUFF INH Q4-6H PRN for SHORTNESS OF BREATH, #1 INHALER 0 Refills Fluconazole (Diflucan) 100 Mg Tab 100 MG PO DAILY for Infection, TAB 0 Refills Lisinopril (Lisinopril) 20 Mg Tab 20 MG PO DAILY, #30 TAB 0 Refills Florin Kerr MD Jun 18, 2017 18:20
[2017-07-09] MEDS ORDERED: LATA.005%O EACH EYE (09:47)
[2017-07-09] MEDS ORDERED: NICO21DI25 T-DERMAL (09:47)
[2017-07-09] MEDS ORDERED: PANT40TA3 PO (09:47)
[2017-07-09] MEDS ORDERED: METO25TA3 PO (09:47)
[2017-07-09] MEDS ORDERED: ACET1TAB86 PO (09:47)
[2017-07-09] MEDS ORDERED: SENN1TAB PO (09:47)
[2017-07-09] MEDS ORDERED: HYDR-3516 PO (09:47)
[2017-07-09] MEDS ORDERED: GABA100C4 PO (09:47)
[2017-07-09] MEDS ORDERED: LISI-515 PO (09:47)
[2017-07-09] MEDS ORDERED: VENTAER INH (09:47)
== END 2017-06-18 19:30 | DRG 964 ==
LOC: NEPC 06:29 → NEDA 10:03 → N06A 14:41
PROVIDERS: ADMIT Hospitalist; ATTEND Hospitalist
DX: S72.111A Displaced fracture of greater trochanter of right femur, initial encounter for closed fracture (principal); S32.512A Fracture of superior rim of left pubis, initial encounter for closed fracture; M62.82 Rhabdomyolysis; L97.322 Non-pressure chronic ulcer of left ankle with fat layer exposed; J44.9 Chronic obstructive pulmonary disease, unspecified; E86.0 Dehydration; I10 Essential (primary) hypertension; F17.210 Nicotine dependence, cigarettes, uncomplicated; H54.8 Legal blindness, as defined in USA; I87.2 Venous insufficiency (chronic) (peripheral); W01.0XXA Fall on same level from slipping, tripping and stumbling without subsequent striking against object, initial encounter; E87.6 Hypokalemia; Y92.015 Private garage of single-family (private) house as the place of occurrence of the external cause
CPT/HCPCS: 70450; 71010; 73502; 73700; 75635; 80048; 80053; 81001; 82550; 82552; 83605; 85025; 86403; 87040; 87077; 87186; 93005; 94664; 96374; J0696; J1200; J7030; J7613; Q9967